=== PATIENT | female | born 1945 | race Caucasian/White ===

== ENCOUNTER 2020-10-18 07:00 | Outpatient (RCR) | payer OTHER, SELFPAY ==
--- NOTE | 2020-09-23 09:12 | MHC.PT.EP ---
[facility] [place] Office [place] Office [place] Office [address] Donine Meza [address] [phone] F: [phone] F: [phone] F: [phone] F: [phone] Physical Therapy Plan of Care Date of Evaluation: 09/23/20 Date of Surgery: NA Diagnosis: PAIN IN RIGHT SHOULDER, DORSALGIA Assessment: Pt IS 75 YO F REFERRED TO PT FROM DR JOSEPHINE LOZANO WITH R SHLDER PAIN AND DORSALGIA (Pt REPORTS CHRONIC BACK PAIN THAT BOTHERS HER ON/OFF..NOT REALLY BOTHERING HER AT THIS TIME). REPORTS 2 MONTH HX OF R SHLDR PAIN (INSIDIOUS ONSET) NOW MOVING TO L SHLDER. Pt IS A QUALITY COMPLIANCE MANAGER (MOSTLY DEST WORK). PRESENTS WITH DECREASED END RANGE OF SHLDER MOTION (ZAY ABD) WITH PAIN AND LIMITED UPPER BODY STRENGTH. +IMPINGEMENT R. SHOULD BENEFIT FROM PT TO ADDRESS THESE SXS Pt REPORTS SHE JUST RE-STARTED SWIMMING 2 NIGHTS/WK AT THE [facility] WITHOUT INCREASE IN SXS (ED TO AVOID PAIN) Frequency and Duration: The patient will be seen 2X/WK X 6 WKS Short Term Goals: 1. INCREASED POSTURE AWARENESS AND AWARENESS SHLDER CARE 2. I HEP WITH DC EX PLAN Group Home Goals: 1. DECREASED R SHLDER PAIN AT LEAST 50% WITH ADLS 2. INCREASED R SHLDER STRENGTH 1/2 MM GRADE 3. INCREASED SHLDER ROM 10-20 DEGREES FOR SHLDER FLEX, ABD AND ER B 4. IMPROVED SPADI Treatment Plan: Modalities to reduce pain, spasms and effusion. Manual therapy to restore motion and function. Therapeutic exercise to improve strength and flexibility. Neuromuscular re-education for posture and balance. Therapeutic activities to return to functional activities of daily living. Electronically signed by: NAY HUERTA PT Please sign and return to therapist. Thank you for your referral.
--- NOTE | 2020-11-29 14:30 | MHC.PT.DC ---
[facility] [place] Office [place] Office [place] Office [address] Donnie Meza [address] [phone] F: [phone] F: [phone] F: [phone] F: [phone] Physical Therapy Discharge Report Diagnosis: PAIN IN RIGHT SHOULDER, DORSALGIA Date of Surgery: NA Date of Evaluation: 09/23/20 Date of Discharge: 11/29/20 Treatments to Date: 7 Cancellations to Date: No Shows to Date: Discharge Status: Independent with HEP Discharge Summary: Pt LAST SEEN ON 10/18/20. PER NOTE BY YAMINI CASTELLON SENIOR ANALYST DEVELOPER:[ Pt feels the TET has helped. Px is variable. ER continues to be pxfull. pt has MD follow up in November. D/C TO HEP TODAY. ] Electronically signed by: NAY HUERTA PT Please sign and return to therapist. Thank you for your referral.
== END 2020-11-29 14:34 | disposition other institution (70) ==
LOC: HO.PT 07:00
PROVIDERS: PCP Internal Medicine; Visit Provider Internal Medicine
DX: M25.511 Pain in right shoulder (principal); M54.9 Dorsalgia, unspecified
CPT/HCPCS: 97110; 97140; 97161; 97530

== ENCOUNTER → 2020-11-19 08:26 | Outpatient (REF) | payer OTHER, SELFPAY ==
--- NOTE | 2020-11-19 08:32 | CA_ITS ---
Transthoracic Echocardiogram Patient (Last, First, Middle): Yamila Mendoza, Gender: Female Date of : 1945 Age: 75 Procedure Date: 11/19/2020 Procedure Type: Transthoracic Echocardiogram Location: OP Height: 152.4 cm Weight: 65.77 kg BSA: 1.63 m2 Heart Rate: bpm BP: 116 / 60 mmHg Cuprous Chloride Helper: Referring MD: Deja Pan MD Butt Welder: Mauro Matias MD Symptoms: R06.02 - Shortness of breath Study Quality: Fair ECG Rhythm: Sinus Conclusions: - 1. Normal LV systolic function with impaired relaxation filling pattern 2. Mild aortic regurgitation 3. Normal RV systolic pressure 4. No pericardial effusion Findings Left Ventricle Normal left ventricular size, thickness, and systolic function. The visually estimated ejection fraction is between 60-65%. Spectral Doppler is indicative of an impaired relaxation filling pattern. E/E prime ratio is between 8 and 15 consistent with indeterminate filling pressures. Right Ventricle Normal right ventricular cavity size and systolic function. Atria Both atria are normal in size. There is no evidence of interatrial shunt. Aortic Valve The aortic valve structure and function is likely normal. There is no aortic valve stenosis. There is mild aortic valve regurgitation. Mitral Valve Normal mitral valve structure and function. There is trace mitral valve regurgitation. There is no mitral valve stenosis. Pulmonic Valve The pulmonic valve is likely normal. There is trace to mild pulmonic valve regurgitation. Tricuspid Valve Normal tricuspid valve structure. There is trace tricuspid valve regurgitation. The right ventricular systolic pressure is normal. The right ventricular systolic pressure is 19 mmHg. Normal right atrial pressure. There is no evidence of pulmonary hypertension. Great Vessels All visible segments of the aorta are normal in size. The pulmonary artery was not well visualized. Venous The inferior vena cava is normal in size and collapses greater than 50% with inspiration. Pericardium/Pleural There is no evidence of pericardial effusion. Prior Study Comparison No prior study available for comparison. Measurements 2D Linear Measurements IVSd: 1.16 0.6-0.9/0.6-1.0 cm LVIDd: 4.15 3.9-5.3/4.2-5.9 cm LVIDd Index: 2.55 2.4-3.2/2.2-3.1 cm/m2 LVIDs: 2.46 2.0-3.6 cm LVPWd: 0.97 0.7-1.1 cm Ao Root: 3.20 2.1-3.5 cm LA Diam: 3.60 2.7-3.8/3.0-4.0 cm LAIDs Index: 2.21 1.5-2.3 cm/m2 LV Mass: 183.12 67-162/88-224 g LV Mass Index: 112.35 43-95/49-115 g/m2 LVOT Diam: 2.10 3.0+(-)1.3 cm Mitral Valve MV Pk E: 0.66 MV PK A: 0.86 MV Decel Time: 169.00 E/A: 0.80 E'Lateral: 10.20 E'Medial: 4.24 E/E' Med: 15.50 E/E' Lat: 6.40 PHT: 49.00 MVA PHT: 4.49 Decel Russell: 3.88 Aortic Valve AoV Pk Ye: 1.46 AoV Mn Ye: 0.85 AoV VTI: 0.30 AoV Pk Grad: 9.00 Aov Mn Grad: 4.00 GIOVANNY Cont.VTI: 2.23 LVOT LVOT Pk Ye: 0.94 LVOT Mn Ye: 0.59 LVOT VTI: 0.20 LVOT Pk Grad: 4.00 LVOT Mn Grad: 2.00 LVOT Diam: 2.10 LVOT Area: 3.46 Diastolic Function MV Pk E: 0.66 MV Pk A: 0.86 E/A: 0.80 E'Medial: 4.24 E/E' Med: 15.50 E' Laterial: 10.20 E/E' Lat: 6.40 Tricuspid Valve TR Pk Ye: 2.02 TR Pk Grad: 16.00 RA Press: 3.00 RVSP: 19.00 Great Vessels Aorta Ao Root-2D: 3.20 2.0-3.7 cm Ao Asc: 3.50 2.1-3.4 cm Pulmonary Valve PV Pk Ye: 1.15 Peak PV Grad: 5.00 Updated in Other Vendor System with Status of Final Mauro Matias MD electronically signed on 11/20/2020 1:54:57 PM with status of Final
== END ==
LOC: HO.CARD 08:26
PROVIDERS: PCP Internal Medicine; Visit Provider Internal Medicine
DX: R06.02 Shortness of breath (principal)
CPT/HCPCS: 93306

== ENCOUNTER → 2021-02-12 08:28 | Outpatient (BNVA) | payer OTHER, SELFPAY | PROVIDERS: PCP Internal Medicine; Visit Provider Internal Medicine | DX: I35.1 Nonrheumatic aortic (valve) insufficiency (principal); R06.02 Shortness of breath | CPT/HCPCS: 93005 ==

== ENCOUNTER 2021-02-20 07:51 | Outpatient (REF) | payer MEDICARE, SELFPAY ==
--- NOTE | ~2021-02-20 | XR_ITS ---
EXAMINATION: XR CHEST CLINICAL INFORMATION: Shortness of breath. COMPARISON: None TECHNIQUE: 2 views of the chest were obtained. FINDINGS: The lungs are clear. The cardiomediastinal silhouette is normal in size. There is no pleural effusion or pneumothorax. No acute osseous abnormality. Right upper quadrant surgical clips. XR/XR chest 2V IMPRESSION: No acute cardiopulmonary findings.
[2021-02-20 09:34] LABS: Alanine Aminotransferase 27 U/L (0-31); Albumin Level 4.1 g/dL (3.5-5.0); Alkaline Phosphatase 114 U/L (39-117); Anion Gap 12 (12-20); Aspartate Amino Transferase 18 U/L (5-31); Bilirubin Total 0.4 mg/dL (0.0-1.0); Blood Urea Nitrogen 12 mg/dL (9-16); Carbon Dioxide 25 mmol/L (22-29); Chloride 111 mmol/L (96-108); Cholesterol 272 mg/dL; Estimated Glomerular Filt Rate 50; Glucose Fasting 101 mg/dL (60-99); HDL Cholesterol 41 mg/dL; LDL Cholesterol Calculated 169 mg/dl; Potassium 3.9 mmol/L (3.3-5.1); Sodium 144 mmol/L (135-145); Total Protein 6.5 g/dL (6.5-8.0); Triglycerides 311 mg/dL
[2021-02-20 09:46] LABS: Thyroid Stimulating Hormone 1.78 uIU/mL (0.32-4.0)
[2021-02-22 05:36] LABS: NT-proBNP 70 pg/mL
[2021-02-27 16:26] LABS: Vitamin D 25-OH, D2 <4 ng/mL; Vitamin D 25-OH, D3 29 ng/mL; Vitamin D 25-OH, Total 29 ng/mL (30-100)
== END 2021-02-20 07:52 | disposition home or self-care (01) ==
LOC: HO.LAB 07:51
PROVIDERS: PCP Internal Medicine; Visit Provider Internal Medicine
DX: R06.02 Shortness of breath (principal); K21.9 Gastro-esophageal reflux disease without esophagitis; E78.5 Hyperlipidemia, unspecified; R60.9 Edema, unspecified; E55.9 Vitamin D deficiency, unspecified
CPT/HCPCS: 36415; 71046; 80053; 80061; 82306; 83880; 84443